=== PATIENT | female | born 1980 | race Caucasian/White ===

== ENCOUNTER 2019-12-28 19:27 | Emergency (ER) | payer SELFPAY ==
[~2019-12-28] VITALS: Ht 154.9 cm; Wt 68.0 kg
[~2019-12-28 19:27] MED LIST: NO MEDS
--- OUTSIDE RECORDS SUMMARY | 2019-12-28 19:30 | XMS REPORT | Summary of Care ---
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 Name Role Phone Pcp, Patient Does Not Have A PCP Reason for Referral * Radiology Services (STAT) Referred By Contact Referred To Contact Status Reason Specialty Diagnoses / Procedures Matteo Veronica MD [address] [address] New Request Diagnostic Diagnoses Radiology Epigastric pain P rocedures US GALL BLADDER * Radiology Services (STAT) Referred By Contact Referred To Contact Status Reason Specialty Diagnoses / Procedures Matteo Veronica MD [address] [address] New Request Diagnostic Diagnoses Radiology Epigastric pain P rocedures US GALL BLADDER Reason for Visit * Reason Comments Abdominal Pain * Auth/Cert Referred By Contact Referred To Contact Status Reason Specialty Diagnoses / Procedures [facility] Emergency Dept [address] [place] [id number] Emergency Medicine Encounter Details Care Team Description Date Type Department Matteo Veronica MD [address] [address] Epigastric pain (Primary Dx); Hepatomegaly; Steatosis of liver 07/02/2019 Emergency [facility]-Emergency Department [address] [place] [phone] Allergies Comments Active Allergy Reactions Severity Noted Date Atorvastatin Calcium Hives 08/16/2006 Sulfa (Sulfonamide Hives 08/16/2006 Antibiotics) documented as of this encounter (statuses as of 07/02/2019) Medications End Date Status Medication Sig Dispensed Refills Start Date Active ibuprofen 800 mg tablet Take 1 tablet 21 tablet 0 by mouth 8 every 8 (eight) hours as needed (PAIN). Active FLUoxetine (PROZAC) 40 mg Take 40 mg by 0 capsule mouth daily. Active HYDROmorphOne 4 mg tablet Take 1 tablet 30 tablet 0 by mouth 8 every 4 (four) hours as needed for Pain (scale 7-10). Active gabapentin 300 mg capsule Take 1 90 capsule 0 capsule by 8 mouth 3 (three) times daily. Active docusate 100 mg capsule Take 1 60 capsule 0 capsule by 8 mouth every 12 (twelve) hours. Active clindamycin 300 mg Take 1 28 capsule 0 capsule capsule by 8 mouth 4 (four) times daily. Active amitriptyline 10 mg Take 1 tablet 30 tablet 0 tablet by mouth at 8 bedtime. Active traMADOL 50 mg tablet Take 1 tablet 10 tablet 0 by mouth 8 every 6 (six) hours as needed for Pain (scale 4-6). Active ondansetron (ZOFRAN) 4 mg Take 1 tablet 12 tablet 0 tabletIndications: Right by mouth 9 upper quadrant abdominal every 8 pain (eight) hours as needed for Nausea and Vomiting (N/V). Active pantoprazole (PROTONIX) Take 1 tablet 28 tablet 0 40 mg EC by mouth 9 tabletIndications: Right daily. upper quadrant abdominal pain Active ibuprofen 800 mg Take 1 tablet 21 tablet 0 tabletIndications: Right by mouth 9 upper quadrant abdominal every 6 (six) pain hours as needed (PAIN). 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 documented as of this encounter Last Filed Vital Signs Reading Time Taken Comments Vital Sign 148/95 07/02/2019 11:01 PM CDT Blood Pressure 91 07/02/2019 11:01 PM CDT Pulse 36.7 C (98 F) 07/02/2019 7:58 PM CDT Temperature 20 07/02/2019 11:01 PM CDT Respiratory Rate 97% 07/02/2019 11:01 PM CDT Oxygen Saturation - - Inhaled Oxygen Concentration 79.4 kg (175 lb) 07/02/2019 7:58 PM CDT Weight 154.9 cm (5' 1") 07/02/2019 7:58 PM CDT Height 33.07 07/02/2019 7:58 PM CDT Body Mass Index documented in this encounter Discharge Instructions * Instructions* Matteo Veronica MD - 07/02/2019 DIAGNOSIS Diagnoses that have been ruled out: None Diagnoses that are still under consideration: None Final diagnoses: Epigastric pain Hepatomegaly Steatosis of liver NO LIFE-THREATENING FINDINGS ON TODAY'S EXAM. PROCEDURES IN THE ER TODAY: Orders Placed This Encounter Procedures US GALL BLADDER CBC WITH DIFF BASIC METABOLIC PANEL (NA, K, CL, CO2, GLUCOSE, BUN, CREATININE, CA) HEPATIC FUNCTION PANEL (59768) (ALB,T.PRO,BILI T,BU/BC,ALT,AST,ALK PHOS) LIPASE POCT TEST URINALYSIS CBC WITH DIFFERENTIAL MEDICATIONS ADMINISTERED IN THE ER TODAY: Orders Placed This Encounter Medications ketorolac (TORADOL) injection 30 mg famotidine (PEPCID (PF)) injection 20 mg YOUR PRESCRIPTIONS AND [id number] MEDICATION RECOMMENDATIONS: Continue medications SPECIAL CARE INSTRUCTIONS: Follow p with PCP Return to the ED if worsening of symptoms or any other problems. FOLLOW-UP RECOMMENDATIONS: RECOMMEND FOLLOW-UP WITH A PRIMARY CARE PROVIDER OR SPECIALIST IN 2-5 DAYS, [place] IF NO IMPROVEMENT IN SYMPTOMS. TO FOLLOW-UP WITHIN THE [facility], TRY THESE OPTIONS (CLINIC APPOIN TMENTS AVAILABLE ON QESZ-IL-GHAB BASIS): 1. SCHEDULE AN APPOINTMENT ONLINE AT WWW[facility] 2. OR CALL THE [facility] AT OR 3. OR CALL YOUR [facility] PHYSICIAN'S OFFICE DIRECTLY IF YOU ARE ALREADY AN ESTABLISH ED [facility] PATIENT. OR, YOU MAY FOLLOW-UP WITH A PROVIDER OF YOUR CHOICE, SUCH : 1. A PHYSICIAN OF YOUR CHOICE 2. [facility], . LOCATIONS IN [facility] 3. [facility], [address], [place]; [phone] RETURN TO ER FOR WORSENING OF SYMPTOMS. * Attachments The following attachments cannot be sent through Care Everywhere.* Abdominal Pain, Adult (Kiswahili) documented in this encounter Plan of Treatment Health Maintenance Due Date Last Done Comments DTaP,Tdap,and Td Vaccines 1998 (1 - Tdap) PAP SMEAR 03/14/2013 03/14/2010, 06/15/2008, 12/14/2007, Additional history exists MAMMOGRAM 2019 INFLUENZA VACCINE 07/10/2019 12/12/2017 (Retired version) PNEUMOCOCCAL 0-64 YEARS Completed 12/12/2017 COMBINED SERIES documented as of this encounter Implants Device Identifier Shelf Expiration Date Model / Serial / Lot Implanted Type Area Manufactur er 02/06/2026 [id number] / [id number] / [id number] Derick Wires Style 1, WIRE Left: Hand Tatyana [id number] Tatyana #[id number] - [id number] Implanted: Qty: 2 on 12/08/2017 by Peter Zafar MD at [facility] documented as of this encounter Procedures Comments Procedure Name Priority Date/Time Associated Diagnosis US GALL BLADDER STAT 07/02/2019 Epigastric pain 10:30 PM CDT POCT TEST DA 07/02/2019 Epigastric pain 9:01 PM CDT CBC WITH DIFFERENTIAL STAT 07/02/2019 Epigastric pain 8:56 PM CDT URINALYSIS STAT 07/02/2019 Epigastric pain 8:56 PM CDT CBC WITH DIFF STAT 07/02/2019 Epigastric pain 8:56 PM CDT BASIC METABOLIC PANEL STAT 07/02/2019 Epigastric pain (NA, K, CL, CO2, GLUCOSE, 8:56 PM CDT BUN, CREATININE, CA) HEPATIC FUNCTION PANEL STAT 07/02/2019 Epigastric pain (63404) (ALB,T.PRO,BILI 8:56 PM CDT T,BU/BC,ALT,AST,ALK PHOS) LIPASE STAT 07/02/2019 Epigastric pain 8:56 PM CDT CONSENT/REFUSAL FOR Routine 07/02/2019 DIAGNOSIS AND TREATMENT 7:54 PM CDT documented in this encounter Results * US GALL BLADDER (07/02/2019 10:30 PM CDT) Specimen Impressions Performed At Hepatomegaly and hepatic steatosis. PACS/VR/DOSE No cholelithiasis. I, Sue Sepulveda MD., have reviewed this study and agree with the above report. Narrative Performed At LIMITED ABDOMINAL ULTRASOUND PACS/VR/DOSE INDICATION:abdominal pain COMPARISON: Abdominal CT 12/15/2018 FINDINGS: The liver is normal in enlarged measuring 18.5 cm in length and demonstrates increased echogenicity. The main portal vein demonstrates hepatopetal flow. No ascites is seen. The gallbladder is normally distended without stones or pericholecystic fluid. Low-level echogenic material within the gallbladder lumen is likely artifact. Evaluation for sonographic Miller's sign is limited due to the patient receiving pain medication. The gallbladder wall measures 2 mm. The common bile duct is normal in caliber measuring 4 mm. The partially imaged right kidney appears unremarkable. The partially imaged pancreatic neck and body are normal in echogenicity. Procedure Note [facility], Radiant Results Inft User - 07/02/2019 10:47 PM CDT LIMITED ABDOMINAL ULTRASOUND INDICATION: abdominal pain COMPARISON: Abdominal CT 12/15/2018 FINDINGS: The liver is normal in enlarged measuring 18.5 cm in length and demonstrates increased echogenicity. The main portal vein demonstrates hepatopetal flow. No ascites is seen. The gallbladder is normally distended without stones or pericholecystic fluid. Low-level echogenic material within the gallbladder lumen is likely artifact. Evaluation for sonographic Miller's sign is limited due to the patient receiving pain medication. The gallbladder wall measures 2 mm. The common bile duct is normal in caliber measuring 4 mm. The partially imaged right kidney appears unremarkable. The partially imaged pancreatic neck and body are normal in echogenicity. IMPRESSION Hepatomegaly and hepatic steatosis. No cholelithiasis. I, Sue Sepulveda MD., have reviewed this study and agree with the above report. Performing Organization Address City/State/Zipcode Phone Number PACS/VR/DOSE * POCT TEST (07/02/2019 9:01 PM CDT) [facility] POCT PREG result On board negative controls acceptable with C Line POCT PREG LOT # [id number] POCT PREG TEST 07/09/2020 DATE Specimen Urine - URINE, CLEAN CATCH * CBC WITH DIFFERENTIAL (07/02/2019 8:56 PM CDT) [facility] WBC 7.78 4.30 - 11.10 [facility] 10*3/L [facility] RBC 4.75 3.93 - 5.25 10*6/L [facility] HGB 12.1 11.6 - 15.0 g/dL [facility] HCT 38.4 35.7 - 45.2 % [facility] MCV 80.8 80.6 - 95.5 fL [facility] MCH 25.5 (L) 25.9 - 32.8 pg [facility] MCHC 31.5 (L) 31.6 - 35.1 g/dL [facility] RDW-SD 43.3 39.0 - 49.9 fL [facility] RDW-CV 15.0 12.0 - 15.5 % [facility] PLT 380 (H) 166 - 358 10*3/L [facility] MPV 9.4 (L) 9.5 - 12.9 fL [facility] NRBC/100 WBC 0.0 0.0 - 10.0 /100 WBCs [facility] NRBC x10^3 <0.01 10*3/L [facility] GRAN MAT (NEUT) 42.1 % [facility] % [facility] IMM GRAN % 0.30 % [facility] LYMPH % 45.9 % [facility] MONO % 8.1 % [facility] EOS % 2.6 % [facility] BASO % 1.0 % [facility] GRAN MAT 3.28 1.88 - 7.09 10*3/uL [facility] x10^3(ANC) [facility] IMM GRAN x10^3 <0.03 0.00 - 0.06 10*3/uL [facility] LYMPH x10^3 3.57 (H) 1.32 - 3.29 10*3/uL [facility] MONO x10^3 0.63 0.33 - 0.92 10*3/uL [facility] EOS x10^3 0.20 0.03 - 0.39 10*3/uL [facility] BASO x10^3 0.08 (H) 0.01 - 0.07 10*3/uL [facility] Specimen Blood - ARM, LEFT Performing Organization Address City/State/Zipcode Phone Number [facility] CLIA: [id number], [address] [place] [address] [facility] * URINALYSIS (07/02/2019 8:56 PM CDT) APPEARANCE Hazy (A) Clear [facility] COLOR Yellow Yellow [facility] PH 5.0 4.8 - 8.0 [facility] SP GRAVITY 1.021 1.003 - 1.030 [facility] GLU U QUAL Normal Normal [facility] BLOOD Negative Negative [facility] KETONES Negative [facility] Negative Negative [facility] UROBILIN Normal Normal [facility] BILIRUBIN Negative Negative [facility] NITRITE Negative Negative [facility] LEUK ERNA Negative Negative [facility] RBC/HPF 4 (H) 0 - 3 HPF [facility] WBC/HPF 2 0 - 5 HPF [facility] BACTERIA Negative Negative [facility] MUCOUS Slight (A) Negative LPF [facility] SQ EPITH 7 (H) <=2 HPF [facility] CA OXALATE 2 (H) <=1 HPF [facility] Specimen Urine - URINE, CLEAN CATCH Performing Organization Address City/[facility]/Zipcode Phone Number [facility] CLIA: [id number], [address] [place] [address] [facility] * LIPASE (07/02/2019 8:56 PM CDT) LIPASE 272 (H) 0 - 220 U/L [facility] Specimen Blood - ARM, LEFT Performing Organization Address City/[facility]/Zipcode Phone Number [facility] CLIA: [id number], [address] [place] [id number] [facility] * HEPATIC FUNCTION PANEL (59172) (ALB,T.PRO,BILI T,BU/BC,ALT,AST,ALK PHOS) (07/02/2019 8:56 PM CDT) TOTAL BILI 0.5 0.1 - 1.1 mg/dL [facility] BILI UNCON 0.3 0.1 - 1.1 mg/dL [facility] BILI CONJ 0.0 0.0 - 0.3 mg/dL [facility] T PROTEIN 7.9 6.3 - 8.2 g/dL [facility] ALBUMIN 4.3 3.5 - 5.0 g/dL [facility] ALK PHOS 88 34 - 122 U/L [facility] ALT(SGPT) 236 (H) 9 - 51 U/L [facility] AST(SGOT) 328 (H) 13 - 40 U/L [facility] Specimen Blood - ARM, LEFT Performing Organization Address City/State/Zipcode Phone Number [facility] CLIA: [id number], [address] [place] [address] [facility] * BASIC METABOLIC PANEL (NA, K, CL, CO2, GLUCOSE, BUN, CREATININE, CA) (07/02/2019 8:56 PM CDT) NA 144 135 - 145 mmol/L [facility] K 4.3 3.5 - 5.0 mmol/L [facility] CL 100 98 - 108 mmol/L [facility] CO2 TOTAL 29 23 - 31 mmol/L [facility] AGAP 15 2 - 16 [facility] BUN 11 7 - 23 mg/dL [facility] GLUCOSE 100 70 - 110 mg/dL [facility] CREATININE 1.01 0.50 - 1.04 mg/dL [facility] CALCIUM 10.3 8.6 - 10.6 mg/dL [facility] eGFR 60.7 mL/min/1.73m2 [facility] Calculation [facility] ([facility]) eGFR 73.6 mL/min/1.73m2 [facility] Calculation [facility] [place]) Specimen Blood - ARM, LEFT Narrative Performed At Association of Glomerular Filtration Rate (GFR) and Staging of Kidney Disease* [facility] + + + + [facility] | GFR (mL/min/1.73 m2)| With Kidney Damage|Without Kidney Damage CAMPUS + + + + |>90|Stage one| Normal + + + + |60-89|Stage two| Decreased GFR + + + + |30-59|Stage three| Stage three + + + + |15-29|Stage four | Stage four + + + + |<15 (or dialysis)|Stage five | Stage five + + + + *Each stage assumes the associated GFR level has been in effect for at least three months.Stages 1 to 5, with or without kidney disease, indicate chronic kidney disease. Notes: Determination of stages one and two (with eGFR >59mL/min/1.73 m2) requires estimation of kidney damage for at least three months as defined by structural or functional abnormalities of the kidney, manifested by either: Pathological abnormalities or Markers of kidney damage (including abnormalities in the composition of the blood or urine or abnormalities in imaging tests). Performing Organization Address City/State/Zipcode Phone Number [facility] CLIA: [id number], [address] [place] [address] [facility] documented in this encounter Visit Diagnoses Diagnosis Epigastric pain - Primary Abdominal pain, epigastric Hepatomegaly Steatosis of liver Other chronic nonalcoholic liver disease documented in this encounter Administered Medications Action Date Dose Rate Site Medication Order MAR Action 07/02/2019 10:10 PM CDT 20 mg famotidine (PEPCID (PF)) injection 20 mg Given 20 mg, Slow IV Push, ONCE, 1 dose, 07/02/19 at 2300, DA 07/02/2019 10:10 PM CDT 30 mg ketorolac (TORADOL) injection 30 mg Given 30 mg, Slow IV Push, ONCE, 1 dose, 07/02/19 at 2300, 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
--- OUTSIDE RECORDS SUMMARY | 2019-12-28 19:30 | XMS REPORT ---
Author Author [facility] Address Unknown Phone Unavailable Care Team Providers Care Digital Marketing Manager Name Role Phone Unavailable Unavailable Problems This patient has no known problems. Allergies, Adverse Reactions, Alerts This patient has no known allergies or adverse reactions. Medications This patient has no known medications.
--- OUTSIDE RECORDS SUMMARY | 2019-12-28 19:30 | XMS REPORT | Summary of Care ---
Author Author [facility] Organization [facility] Address Unknown Phone Unavailable Care Team Providers Care Digital Campaign Manager Name Role Phone Pcp, Patient Does Not Have A PCP Reason for Visit * Reason Comments WITHDRAWAL * Auth/Cert Referred By Contact Referred To Contact Status Reason Specialty Diagnoses / Procedures [facility] Emergency Dept [address] [place] [phone] Emergency Medicine Encounter Details Care Team Description Date Type Department Matteo Veronica MD [address] [facility] [id number] [place], [place] [id number] Alcohol withdrawal syndrome without complication (Primary Dx); Alcohol abuse 06/14/2019 Emergency [facility]-Emergency Department [address] [place] [phone] Allergies Comments Active Allergy Reactions Severity Noted Date Atorvastatin Calcium Hives 08/16/2006 Sulfa (Sulfonamide Hives 08/16/2006 Antibiotics) documented as of this encounter (statuses as of 06/14/2019) Medications End Date Status Medication Sig Dispensed [...] 6 (six) pain hours as needed (PAIN). 06/19/2019 Active oxazepam 15 mg Take 1 10 capsule 0 capsuleIndications: capsule by 9 Alcohol withdrawal mouth 2 (two) syndrome without times daily complication for 5 days. 06/18/2019 Active ondansetron (ZOFRAN ODT) Take 1 tablet 12 tablet 0 4 mg disintegrating by mouth 9 tabletIndications: every 8 Alcohol withdrawal (eight) hours syndrome without as needed for complication N/V unresponsive to Promethazine for up to 4 days. documented as of this encounter (statuses as of 06/14/2019) Active Problems Problem Noted Date Abscess 12/01/2017 Cellulitis of finger of right hand 11/30/2017 Overview: Added automatically from request for surgery [id number] delivery delivered 08/07/2007 Overview: ICD10 Diagnosis Term [employer] Utility Nausea with vomiting 07/16/2007 documented as of this encounter (statuses as of 06/14/2019) Immunizations Name Administration Dates Next Due Influenza [...] Signs Reading Time Taken Comments Vital Sign 147/85 06/14/2019 10:30 PM CDT Blood Pressure 90 06/14/2019 10:30 PM CDT Pulse 36.9 C (98.4 F) 06/14/2019 7:56 PM CDT Temperature 20 06/14/2019 10:30 PM CDT Respiratory Rate 100% 06/14/2019 10:30 PM CDT Oxygen Saturation - - Inhaled Oxygen Concentration 83.9 kg (185 lb) 06/14/2019 7:56 PM CDT Weight 154.9 cm (5' 1") 06/14/2019 7:56 PM CDT Height 34.96 06/14/2019 7:56 PM CDT Body Mass Index documented in this encounter Discharge Instructions * Instructions* Matteo Veronica MD - 06/14/2019 DIAGNOSIS Diagnoses that have been ruled out: None Diagnoses that are still under consideration: None Final diagnoses: Alcohol withdrawal syndrome without complication Alcohol abuse NO LIFE-THREATENING FINDINGS ON TODAY'S EXAM. PROCEDURES IN THE ER TODAY: Orders Placed This Encounter Procedures Basic Metabolic Panel (NA, K, CL, CO2, GLUCOSE, BUN, CREATININE, CA) CBC with Differential Hepatic Function Panel (ALB, T.PRO, BILI T, BU/BC, ALT, AST, ALK PHOS) Lipase Serum Urinalysis POCT Test, Urine CBC WITH DIFFERENTIAL ETHANOL ADC / LCC - DRUG SCREEN TRIAGE MEDICATIONS ADMINISTERED IN THE ER TODAY: Orders Placed This Encounter Medications NaCl 0.9% (NS) bolus infusion 1,000 mL LORazepam (ATIVAN) injection 2 mg thiamine (VITAMIN B1) tablet 100 mg foLIC acid (FOLATE) tablet 1 mg ondansetron (ZOFRAN (PF)) injection 4 mg Ketorolac Tromethamine (TORADOL) injection 30 mg YOUR PRESCRIPTIONS AND [id number] MEDICATION RECOMMENDATIONS: Serax SPECIAL CARE INSTRUCTIONS: Follow up with PCP Return to the ED if worsening of symptoms FOLLOW-UP RECOMMENDATIONS: RECOMMEND FOLLOW-UP WITH A PRIMARY CARE PROVIDER OR SPECIALIST IN 2-5 DAYS, [place] IF NO IMPROVEMENT IN SYMPTOMS. TO FOLLOW-UP WITHIN THE [facility], TRY THESE OPTIONS (CLINIC APPOIN TMENTS AVAILABLE ON [id number] BASIS): 1. SCHEDULE AN APPOINTMENT ONLINE AT [email or web address] 2. OR CALL THE [facility] AT OR 3. OR CALL YOUR [facility] PHYSICIAN'S OFFICE DIRECTLY IF YOU ARE ALREADY AN ESTABLISH ED [facility] PATIENT. OR, YOU MAY FOLLOW-UP WITH A PROVIDER OF YOUR CHOICE, SUCH : 1. A PHYSICIAN OF YOUR CHOICE 2. [facility], . LOCATIONS IN [facility] 3. [facility], [address], [place]; RETURN TO ER FOR WORSENING OF SYMPTOMS. * Attachments The following attachments cannot be sent through Care Everywhere.* Alcoholism: Resources for Family and Friends ([place]) documented in this encounter Plan of Treatment Health Maintenance Due Date Last Done Comments DTaP,Tdap,and Td Vaccines 1998 (1 - Tdap) PAP SMEAR 03/14/2013 03/14/2010, 06/15/2008, 12/14/2007, Additional history exists MAMMOGRAM 2019 INFLUENZA VACCINE 07/10/2019 12/12/2017 PNEUMOCOCCAL 0-64 YEARS Completed 12/12/2017 COMBINED SERIES documented as of this encounter Implants Device Identifier Shelf Expiration Date Model / Serial / Lot Implanted Type Area Manufactur er 02/06/2026 [id number] / [id number] / [id number] Derick Wires Style 1, WIRE Left: Hand Tatyana [id number] Tatyana #[id number] - [id number] Implanted: Qty: 2 on 12/08/2017 by Peter Zafar MD at [facility] documented as of this encounter Procedures Comments Procedure Name Priority Date/Time Associated Diagnosis ADC / LCC - DRUG SCREEN STAT 06/14/2019 Alcohol withdrawal TRIAGE 10:51 PM CDT syndrome without complication CBC WITH DIFFERENTIAL STAT 06/14/2019 Alcohol withdrawal 8:21 PM CDT syndrome without complication POCT TEST DA 06/14/2019 Alcohol withdrawal 8:21 PM CDT syndrome without complication URINALYSIS STAT 06/14/2019 Alcohol withdrawal 8:21 PM CDT syndrome without complication CBC WITH DIFF Routine 06/14/2019 Alcohol withdrawal 8:21 PM CDT syndrome without complication ETHANOL STAT 06/14/2019 Alcohol withdrawal 8:21 PM CDT syndrome without complication BASIC METABOLIC PANEL STAT 06/14/2019 Alcohol withdrawal (NA, K, CL, CO2, GLUCOSE, 8:21 PM CDT syndrome without BUN, CREATININE, CA) complication HEPATIC FUNCTION PANEL STAT 06/14/2019 Alcohol withdrawal (16401) (ALB,T.PRO,BILI 8:21 PM CDT syndrome without T,BU/BC,ALT,AST,ALK PHOS) complication LIPASE STAT 06/14/2019 Alcohol withdrawal 8:21 PM CDT syndrome without complication CONSENT/REFUSAL FOR Routine 06/14/2019 DIAGNOSIS AND TREATMENT 7:48 PM CDT documented in this encounter Results * ADC / C - DRUG SCREEN TRIAGE (06/14/2019 10:51 PM CDT) BENZO U Negative Negative [facility] STACEY U Negative Negative [facility] AMPHET Negative Negative [facility] THC Negative [facility] METHADONE Negative Negative [facility] Meth U Negative Negative [facility] OPIATES Negative Negative [facility] Cocaine Negative Negative [facility] Metabolite [facility] PROPOXY Negative Negative [facility] Tric U Negative Negative [facility] PCP Negative Negative [facility] OXYCOD Negative Negative [facility] Specimen Urine - URINE, CLEAN CATCH Narrative Performed At Urine Drug Cutoff Ranges [facility] Benzodiazepines: 150 ng/mL [facility] Barbiturates: 200 ng/mL [place] Amphetamine: 500 ng/mL Cannabinoids: 50ng/mL Methadone: 200 ng/mL Methamphetamine: 500 ng/mL Opiates: 100 ng/mL or 2000 ng/mL Cocaine: 150 ng/mL Propoxyphene:300 ng/mL Tricyclics:300 ng/mL Oxycodone: 100 ng/mL PCP: 25ng/mL The results are to be used only for medical (i.e., treatment) purposes. Unconfirmed screening results must not be used for non-medical purposes (e.g., employment testing, legal testing). Performing Organization Address City/[facility] Phone Number [facility] CLIA: [id number], [address] [place] [address] [facility] * ETHANOL (06/14/2019 8:21 PM CDT) ALCOHOL <10 mg/dL [facility] Specimen Blood Narrative Performed At Toxic Greater than or equal to 80 mg/dL. [facility] NOTE: Whole blood values are approximately 10% to 15% lower than serum and [facility] plasma. CAMPUS Performing Organization Address City/[facility]code Phone Number [facility] CLIA: [id number], [address] [place] [address] [facility] * CBC WITH DIFFERENTIAL (06/14/2019 8:21 PM CDT) WBC 15.66 (H) 4.30 - 11.10 [facility] 10*3/L [facility] RBC 5.24 3.93 - 5.25 10*6/L [facility] HGB 13.4 11.6 - 15.0 g/dL [facility] HCT 42.7 35.7 - 45.2 % [facility] MCV 81.5 80.6 - 95.5 fL [facility] MCH 25.6 (L) 25.9 - 32.8 pg [facility] MCHC 31.4 (L) 31.6 - 35.1 g/dL [facility] RDW-SD 46.8 39.0 - 49.9 fL [facility] RDW-CV 15.9 (H) 12.0 - 15.5 % [facility] PLT 601 (H) 166 - 358 10*3/L [facility] MPV 8.9 (L) 9.5 - 12.9 fL [facility] NRBC/100 WBC 0.0 0.0 - 10.0 /100 WBCs [facility] NRBC x10^3 <0.01 10*3/L [facility] GRAN MAT (NEUT) 76.5 % [facility] % [facility] IMM GRAN % 0.50 % [facility] LYMPH % 16.0 % [facility] MONO % 5.8 % [facility] EOS % 0.4 % [facility] BASO % 0.8 % [facility] GRAN MAT 11.98 (H) 1.88 - 7.09 10*3/uL [facility] x10^3(ANC) [facility] IMM GRAN x10^3 0.08 (H) 0.00 - 0.06 10*3/uL [facility] LYMPH x10^3 2.50 1.32 - 3.29 10*3/uL [facility] MONO x10^3 0.91 0.33 - 0.92 10*3/uL [facility] EOS x10^3 0.07 0.03 - 0.39 10*3/uL [facility] BASO x10^3 0.12 (H) 0.01 - 0.07 10*3/uL [facility] Specimen Blood - ARM, LEFT Performing Organization Address City/State/Zipcode Phone Number [facility] CLIA: [id number], [address] [place] [address] [facility] * POCT Test, Urine (06/14/2019 8:21 PM CDT) POCT PREG NEGATIVE On board PRESENT controls acceptable with C Line POCT PREG LOT # [id number] POCT PREG TEST [phone] DATE Specimen Urine - URINE, CLEAN CATCH * Urinalysis (06/14/2019 8:21 PM CDT) Pathologist [facility] APPEARANCE Hazy (A) Clear [facility] COLOR Yellow Yellow [facility] PH 7.0 4.8 - 8.0 [facility] SP GRAVITY 1.019 1.003 - 1.030 [facility] GLU U QUAL Normal Normal [facility] BLOOD Negative Negative [facility] KETONES Negative Negative [facility] PROTEIN 100 mg/dL (A) Negative [facility] UROBILIN Normal Normal [facility] BILIRUBIN Negative Negative [facility] NITRITE Negative Negative [facility] LEUK ERNA Negative Negative [facility] RBC/HPF 3 0 - 3 HPF [facility] WBC/HPF 3 0 - 5 HPF [facility] BACTERIA Few (A) Negative [facility] AMORPHOUS 1+ HPF [facility] SQ EPITH 12 (H) <=2 HPF [facility] Specimen Urine - URINE, CLEAN CATCH Performing Organization Address City/[facility] Phone Number [facility] CLIA: [id number], [address] [place] [phone] [facility] * Lipase Serum (06/14/2019 8:21 PM CDT) Pathologist [facility] LIPASE 137 0 - 220 U/L [facility] Specimen Blood - ARM, LEFT Performing Organization Address [facility] Phone Number [facility] CLIA: [id number], [address] [place] [phone] [facility] * Hepatic Function Panel (ALB, T.PRO, BILI T, BU/BC, ALT, AST, ALK PHOS) (06/14/2019 8:21 PM CDT) TOTAL BILI 1.1 0.1 - 1.1 mg/dL [facility] BILI UNCON 0.8 0.1 - 1.1 mg/dL [facility] BILI CONJ 0.0 0.0 - 0.3 mg/dL [facility] T PROTEIN 9.0 (H) 6.3 - 8.2 g/dL [facility] ALBUMIN 4.9 3.5 - 5.0 g/dL [facility] ALK PHOS 85 34 - 122 U/L [facility] ALT(SGPT) 166 (H) 9 - 51 U/L [facility] AST(SGOT) 121 (H) 13 - 40 U/L [facility] Specimen Blood - ARM, LEFT Performing Organization Address City/State/Zipcode Phone Number [facility] CLIA: [id number], [address] [place] [address] [facility] * Basic Metabolic Panel (NA, K, CL, CO2, GLUCOSE, BUN, CREATININE, CA) (06/14/2019 8:21 PM CDT) NA 140 135 - 145 mmol/L [facility] K 5.2 (H) 3.5 - 5.0 mmol/L [facility] CL 100 98 - 108 mmol/L [facility] CO2 TOTAL 23 23 - 31 mmol/L [facility] AGAP 17 (H) 2 - 16 [facility] BUN 10 7 - 23 mg/dL [facility] GLUCOSE 117 (H) 70 - 110 mg/dL [facility] CREATININE 0.69 0.50 - 1.04 mg/dL [facility] CALCIUM 10.3 8.6 - 10.6 mg/dL [facility] eGFR 94.2 mL/min/1.73m2 [facility] Calculation [facility] (Non-[facility]) eGFR 114.2 mL/min/1.73m2 [facility] Calculation [facility] ([facility]) Specimen Blood - ARM, LEFT Narrative Performed At Association of Glomerular Filtration Rate (GFR) and Staging of Kidney Disease* [facility] + + + + [facility] | GFR (mL/min/1.73 m2)| With Kidney Damage|Without [...] tests). Performing Organization Address City/State/Zipcode Phone Number [facility] CLIA: [id number], [address] [place] [address] [facility] documented in this encounter Visit Diagnoses Diagnosis Alcohol withdrawal syndrome without complication - Primary Alcohol abuse Alcohol abuse, unspecified documented in this encounter Administered Medications Action Date Dose Rate Site Medication Order Jan06/14/2019 10:43 PM CDT 100 mg thiamine (VITAMIN B1) tablet 100 mg Given 100 mg, Oral, DAILY, First dose on Thu06/15/19 at 0900, Until Discontinued, Routine 100 mg Given 06/14/2019 8:31 PM CDT Action Date Dose Rate Site Medication Order Jan06/14/2019 8:31 PM CDT 1 mg foLIC acid (FOLATE) tablet 1 mg Given 1 mg, Oral, ONCE, 1 dose, 06/14/19 at 2130, DA 06/14/2019 10:50 PM CDT 30 mg Left Arm ketorolac (TORADOL) injection 30 mg Given 30 mg, Slow IV Push, ONCE, 1 dose, Thu06/14/19 at 2345, Routine, glass forming crew member approving Restricted medication: MATTEO VERONICA 06/14/2019 8:32 PM CDT 2 mg LORazepam (ATIVAN) injection 2 mg Given 2 mg, Slow IV Push, ONCE, 1 dose, Thu06/14/19 at 2130, STAT 06/14/2019 8:21 PM CDT 1,000 mL 999 mL/hr NaCl 0.9% (NS) bolus infusion 1,000 mL New Bag at 999 mL/hr, 1,000 mL, IV Infusion, ONCE, 1 dose, Thu06/14/19 at 2030, DA 06/14/2019 8:32 PM CDT 4 mg ondansetron (ZOFRAN (PF)) injection 4 mg Given 4 mg, Slow IV Push, ONCE, 1 dose, Thu06/14/19 at 2130, DA documented in this encounter
[2019-12-28] MEDS ORDERED: HYDROCODONE/APAP 7.5MG-325MG 1 EA TAB PO STA (20:20)
[2019-12-28] MEDS ORDERED: CLINDAMYCIN PHOS 600 MG/ 4 ML VIAL IM ONE (20:30)
[2019-12-28] MEDS ORDERED: LIDOCAINE HCL 1% 2 ML AMP INJ ONE (20:30)
[2019-12-28] MEDS ORDERED: LIDOCAINE HCL 1% LOCAL INJ 20 ML VIAL ONE (20:40)
[2019-12-28] MEDS ORDERED: CLONIDINE HCL 0.1 MG TAB ONE (20:41)
[2019-12-28] MEDS ORDERED: CLONIDINE HCL 0.1 MG TAB PO ONE (20:45)
--- NOTE | 2019-12-28 21:41 | Diagnostic Imaging Report ---
Hand Complete CPT code: 06545 Indication:Third digit injury Technique: Three views of the right hand obtained Comparison: None. Findings: Oblique and lateral images are suboptimally positioned. Distal radius and ulna appear intact. Carpal bones appear generally well aligned. The digits appear intact. There is diffuse soft tissue swelling of the second and third digits. No radiopaque foreign bodies in the soft tissues. IMPRESSION: No evidence for displaced fracture or current dislocation of the hand given the limitations of this exam. Signed by: Dr. Aime Paniagua MD on 12/28/2019 9:38 PM
[2019-12-28] MEDS ORDERED: CLINDAMYCIN HC300 MG PO (21:53)
[2019-12-28] MEDS ORDERED: ULTRAM50 MG PO (21:53)
== END 2019-12-28 22:30 | disposition home or self-care (01) ==
LOC: ER 19:27
DX: L03.011 Cellulitis of right finger (principal); I10 Essential (primary) hypertension; M06.9 Rheumatoid arthritis, unspecified; M79.7 Fibromyalgia; F31.9 Bipolar disorder, unspecified; F17.210 Nicotine dependence, cigarettes, uncomplicated; F15.90 Other stimulant use, unspecified, uncomplicated
CPT/HCPCS: 10060; 73130; 99283; J2001 ×2

== ENCOUNTER 2020-06-30 14:57 | Emergency (ER) | payer SELFPAY ==
[~2020-06-30] VITALS: Ht 154.9 cm; Wt 59.0 kg
[~2020-06-30 14:57] MED LIST changes: +CLINDAMYCIN HC300 MG PO; +ULTRAM50 MG PO
--- OUTSIDE RECORDS SUMMARY | 2020-06-30 15:12 | XMS REPORT | Continuity of Care Document ---
Author Author [facility] t Organization [facility] Address [address] [place] [address] Phone Unavailable Care Team Providers Care Health Practice Manager Name Role Phone NO, PCP PCP Unavailable Graham MD, Antione Hdz Attphys [phone] HIMA HINTON Attphys Unavailable Endy Veronica MD Attphys Payers Payer Name Policy Type Policy Number Effective Date Expiration Date S jorge [employer] [id number] [facility] Problems Condition Name Condition Details Condition Category Status Onset Date Resolution Date Last Treatment Date Treating Clinician Comments Source Hand trauma, left, initial encounter Hand trauma, left, init ial encounter Disease Active 2018-02-06 00:00:00 [facility] Headache(784.0) Headache(784.0) Disease Active 2014-09-01 00:00:00 [facility] Anxiety Anxiety Disease Active 2014-09-01 00:00:00 [facility] Active smoker Active smoker Disease Active 2014-09-01 00:00:00 [facility] Seizure disorder Seizure disorder Disease Active 2014-09-01 00:00:00 [facility] Rheumatoid arthritis(714.0) Rheumatoid arthritis(714.0) Disease Active 2014-09-01 00:00:00 [facility] Bipolar affective Bipolar affective Disease Active 2014-09-01 00:00:00 [facility] Depression Depression Disease Active 2014-09-01 00:00:00 [facility] Right sided abdominal pain Right sided abdominal pain Disease Active 2011-12-11 00:00:00 [facility] Allergies, Adverse Reactions, Alerts Allergy Name Allergy Type Status Severity Reaction(s) Onset Date Inacti ve Date Treating Clinician Comments Source Sulfa (Sulfonamide Antibiotics) Propensity to adverse reactions to drug Active Altered Mental Status 2020-05-22 00:00:00 Pe[facility] Cruz Sulfa (Sulfonamide Antibiotics) DA Active U 2019-10-31 00 :00:00 [facility] Sulfa (Sulfonamide Antibiotics) DA Active U 2019-10-02 00 :00:00 [facility] Sulfa (Sulfonamide Antibiotics) DA Active U 2017-08-27 00 :00:00 [facility] Sulfa (Sulfonamide Antibiotics) Allergy to Substance Active M oderate "SLOWLY KILLS ME" 2015-05-07 00:00:00 [facility] Sulfa (Sulfonamide Antibiotics) Propensity to adverse reactions to drug Active 2011-12-10 00:00:00 [facility] Family History Family Member Diagnosis Comments Start Date Stop Date Source Natural father Hypertension [facility] Natural mother Diabetes [facility] Natural mother Heart [facility] Natural mother Hypertension [facility] Social History Social Habit Start Date Stop Date Quantity Comments Source Sex Assigned At [facility] Alcohol intake 2017-08-16 00:00:00 2017-08-16 00:00:00 Current drinker of alcohol (finding) [facility] Alcohol Comment 2017-08-16 00:00:00 2017-08-16 00:00:00 Occasional [facility] Smoking Status Start Date Stop Date Source Current every day smoker 2017-08-16 00:00:00 [facility] Medications Ordered Medication Name Filled Medication Name Start Date Stop Da te Current Medication? Ordering Clinician Indication Dosage Frequency Signature (SIG) Comments Components Source Clindamycin Hcl 300 Mg Capsule Clindamycin Hcl 300 Mg Capsul e 2019-12-28 00:00:00 Yes Derik L Ivey Traffic Control Technician 300 Every 6 Hours [facility] Tramadol Hcl (Ultram) 50 Mg Tablet Tramadol Hcl (Ultram) 50 Mg Tablet 2019-12-28 00:00:00 Yes Derik L Ivey Traffic Control Technician 50 Every 6 Hours as needed for Mild Pain (1-3) Or Fever>100.[address] [facility] clonazePAM (KLONOPIN) 1 mg tablet 2014-12-13 00:00:00 Yes Bipolar 1 disorder 1mg Take 1 tablet by mouth 2 times daily as needed for Anxiety. [facility] FLUoxetine (PROZAC) 20 mg capsule 2014-12-13 00:00:00 Yes Bipolar 1 disorder 60mg QD Take 3 capsules by mouth daily. [facility] ARIPiprazole (ABILIFY) 5 mg tablet 2014-12-13 00:00:00 Yes Bipolar 1 disorder Take 1 tab po BID. [facility] traZODone (DESYREL) 100 mg tablet 2014-12-13 00:00:00 Yes Bipolar 1 disorder 100mg Take 1 tablet by mouth at bedtime nightly. [facility] benzonatate (TESSALON PERLES) 100 mg capsule 2014-11-07 00:0 0:00 Yes Acute bronchitis 100mg Take 1 capsule by mouth 3 times daily as needed for Cough. [facility] Lubiprostone (AMITIZA) 8 mcg capsule 2014-10-12 00:00:00 Yes Constipation 8ug Take 1 capsule by mouth 2 times daily (with meals). [facility] predniSONE (DELTASONE) 20 mg tablet 2014-10-12 00:00:00 Yes Rheumatoid arthritis(714.0) 20mg QD Take 1 tablet by mouth daily. [facility] FLUoxetine (PROZAC) 40 mg capsule 2014-09-01 00:00:00 Ye s Depression 40mg QD Take 1 capsule by mouth daily. [facility] butalbital-apap (PHRENILIN) 50-325 mg tablet 2014-09-01 00:0 0:00 Yes Headache(784.0) 1{tbl} Take 1 tablet by mark th every 4 hours as needed for Pain. [facility] Vital Signs Vital Name Observation Time Observation Value Comments Source Systolic blood pressure 2020-05-23 01:00:00 163 mm[Hg] Randall Arroyo Diastolic blood pressure 2020-05-23 01:00:00 97 mm[Hg] Randall Arroyo Heart rate 2020-05-23 01:00:00 63 /min Randall Arroyo Respiratory rate 2020-05-23 01:00:00 21 /min Wanda Arroyo Oxygen saturation in Arterial blood by Pulse oximetry 05-23 01:00:00 99 /min Randall Arroyo Body temperature 2020-05-22 16:38:29 36.5 Yarely Hous abhay Arroyo Procedures Procedure Date / Time Performed Performing Clinician Sour e CT ABDOMEN PELVIS W CONTRAST 2020-05-22 21:21:39 Devin Graham URINE DRUGS OF ABUSE SCREEN 2020-05-22 20:32:00 Gianluca Graham URINE CULTURE 2020-05-22 19:34:00 Anne Graham URINALYSIS SCREEN AND MICROSCOPY, WITH REFLEX TO CULTURE 202 19:34:00 Anne Graham HC COMPLETE BLD COUNT W/AUTO DIFF 2020-05-22 19:19:00 Anne Graham COMPREHENSIVE METABOLIC PANEL 2020-05-22 19:19:00 Chhaya Graham LIPASE LEVEL 2020-05-22 19:19:00 Anne Graham HCG QUALITATIVE, SERUM SCREEN 2020-05-22 19:19:00 Chhaya Graham ESTIMATED GFR 2020-05-22 19:19:00 Anne Graham Plan of Care Planned Activity Planned Date Details Comments Source Future Scheduled Test 2020-08-09 00:00:00 INFLUENZA VACCINE [code = INFLUENZA VACCINE] Randall Arroyo Future Scheduled Test 2020-08-09 00:00:00 IMM Influenza Seas onal Aug to January (>/= 19 yrs) [code = IMM Influenza Seasonal Aug to January (>/= 19 yrs)] [facility] Scheduled Test 2019 00:00:00 Breast Cancer Scrn (Yearly) [code = Breast Cancer Scrn (Yearly)] [facility] Scheduled Test 2000 00:00:00 Screening for [place] gnant neoplasm of cervix (procedure) [code = 818251213] Randall Estrada t Future Scheduled Test 2000 00:00:00 Screening for [place] gnant neoplasm of cervix (procedure) [code = 146354544] [facility] Encounters Start Date/Time End Date/Time Encounter Type Admission Type [facility] Care Department Encounter ID Source 2020-05-22 00:00:00 2020-05-23 00:00:00 Emergency ANNE GRAHAM [facility] [id number] Randall Arroyo 2019-12-28 19:27:00 2019-12-28 22:30:00 Departed Emergency Room 1 HIMA HINTON [facility] [id number] [facility] 2019-07-02 20:01:17 2019-07-02 23:34:00 Emergency Matteo Veronica [facility] ([facility]) [id number] 2019-06-14 19:58:52 2019-06-14 23:11:00 Emergency Matteo Veronica [facility] ([facility]) [id number] 2018-02-06 20:22:56 2018-02-06 20:22:56 Emergency [facility] [id number] [facility] 2018-02-06 18:43:59 2018-02-06 18:43:59 Emergency [facility] [id number] [facility] 2017-09-09 00:00:00 2017-09-09 00:00:00 Outpatient [facility] [id number] [facility] 2017-08-16 18:06:40 2017-08-16 18:06:40 Emergency [facility] [id number] [facility] Results Test Description Test Time Test Comments Results Result Comments Source Urine drugs of abuse screen 2020-05-22 21:36:47 Test Item Amphetamine screen, urine (test code = 3349-8) Positive A Barbiturate screen, urine (test code = 3377-9) Negative Benzodiazepine screen, urine (test code = 3390-2) Negative Cocaine screen, urine (test code = 3397-7) Negative Methadone metabolite (EDDP), urine (test code = 43793-0) Negative Opiates screen, urine (test code = 3879-4) Negative Oxycodone screen, urine (test code = 80591-5) Negative Phencyclidine screen, urine (test code = 3936-2) Negative Cannabinoid screen, urine (test code = 3427-2) Positive A Drug screen minimum concentration of detectabilityAmphetamines 1000 ng/mLBarbiturates 200 ng/mLBenzodiazepines 300 ng/mLCocaine 300 ng/mLMethadone 300 ng/mLOpiates 300 ng/mLOxycodone 300 ng/mLPhencyclidine 25 ng/mLCannabinoids 50 ng/mLTricyclics 1000 ng/mLResults are from screening tests and should only be used for medical evaluation. Drug testing for legal purposes requires definitive (or confirmatory) testing methods, which are available upon request. Contact the laboratory if definitive testing is required. Lab Interpretation (test code = 83970-7) Abnormal [facility] Pelvis W [id number] 21:30:34Hm Interface, Radiology Results 05/22/2020 9:33 PM CDTCT ABDOMEN PELVIS W CONTRASTCLINICAL INDICATION: R sided abd painTECHNIQUE: Multidetector CT imaging of the abdomen and pelvis was performed following the intravenous admini stration of iodinated contrast with multiplanar reconstructions. CT imaging was performed with iterative reconstruction technique and/or automated exposure con trol to reduce radiation dose.COMPARISON: 04/08/2008IMPRESSION:LOWER THORAX: Mi ld bibasilar atelectasis.Mild wall thickening of the distal esophagus is seen, c oncerning for esophagitis.LIVER: Diffuse fatty infiltration of the liver.BILI DEVI: Normal. SPLEEN: Normal.PANCREAS: Normal.ADRENALS: Normal. KIDNEYS: Kid neys, ureters, and bladder are normal.PERITONEUM: Bilateral Essure devices are i n satisfactory location. Trace fluid is seen in the pelvis. No free intraperiton eal air. VASCULAR: UnremarkableLYMPH NODES: No enlarged lymph nodes in the abd omen or pelvis.GI: Mild colonic diverticulosis is seen without diverticulitis. The appendix is normal. No gastrointestinal tract obstruction.BONES: There are no acute osseous abnormalities.SOFT TISSUES: Unremarkable.Summary:Mild wall thi ckening of the distal esophagus is seen, concerning for esophagitis.Diffuse fatt y infiltration of the liver.[facility]-HF22DLZHYgdzljgRandall ArroyoUrine [id number] 20:46:59* Test Item Value Reference Range Interpretation Comments Urine culture (test code = 7291217) SEE COMMENT Bacteriuria screen negative. [facility] screen and microscopy, with reflex to culture 2020-05-22 20:46:59* Test Item Value Reference Range Interpretation Comments Specimen site (test code = 1270361) Clean catch Color, UA (test code = 5778-6) Straw Appearance, UA (test code = 5767-9) Clear Specific gravity, UA (test code = 5811-5) 1.003 1.001-1.035 pH, UA (test code = 5803-2) 6.0 5.0-8.5 Protein, UA (test code = 35813-8) Negative Negative Glucose, UA (test code = 37986-4) Negative Negative Ketones, UA (test code = 2514-8) Negative Negative Bilirubin, UA (test code = 5770-3) Negative Negative Blood, UA (test code = 5794-3) Negative Negative Nitrite, UA (test code = 5802-4) Negative Negative Urobilinogen, UA (test code = 74525-4) Negative <2.0 Leukocyte esterase, UA (test code = 5799-2) Negative Negative WBC, UA (test code = 5821-4) <1 0- 5 /HPF RBC, UA (test code = 99491-1) <1 0- 5 /HPF Bacteria, UA (test code = 39528-5) None seen None seen Yeast, UA (test code = 26527-8) None seen Yeast with pseudohyphae, UA (test code = 00207-7) None seen [facility] qualitative, serum [id number] 20:29:27* Test Item Value Reference Range Interpretation Comments hCG qualitative, serum (test code = 2118-8) Negative The manufacturers stated sensitivity of HcG test for serum is >/= 10 mIU/ml and urine is >/= 20mIU/ml. [facility] [id number] 19:56:49* Test Item Value Reference Range Interpretation Comments Sodium (test code = 2951-2) 136 135- 150 mEq/L Potassium (test code = 2823-3) 3.6 3.5- 5.0 mEq/L Chloride (test code = 2075-0) 101 98- 112 mEq/L CO2 (test code = 2027-9) 24 mmol/L 24-31 Anion gap (test code = 23848-4) 11@ANIO 7- 15 mEq/L BUN (test code = 3094-0) 8 mg/dL 7-18 Creatinine (test code = 2160-0) 0.70 mg/dL 0.5-0.9 Glucose (test code = 2345-7) 94 mg/dL 65-100 Calcium (test code = 53419-0) 8.8 mg/dL 8.3-10.2 Protein (test code = 2885-2) 7.1 g/dL 6.3-8.3 Albumin (test code = 1751-7) 3.5 g/dL 3.5-5 A/G ratio (test code = 1759-0) 1.0 0.7-3.8 Alkaline phosphatase (test code = 6768-6) 87 U/L 0-104 AST (test code = 1920-8) 83 U/L 10-35 H ALT (test code = 1742-6) 85 U/L 5-50 H Total bilirubin (test code = 1974-2) 0.6 mg/dL 0.2-1.2 Lab Interpretation (test code = 09408-6) Abnormal [facility] MethodistLipase [id number] 19:56:48* Test Item Value Reference Range Interpretation Comments Lipase (test code = 3040-3) 33 U/L 13-60 [facility] MethodistEstimated [id number] 19:56:47* Test Item Value Reference Range Interpretation Comments Estimated GFR (test code = 5488) >=90 mL/min/1.73 m2 Catergory Units InterpretationG1 >=90 Normal or highG2 60-89 Mildly olvzjlgsyD2h 45-59 Mildly to moderately geghnpkvqD9u 30-44 Moderately to severely decreasedG4 15-29 Severely decreasedG5 <15 Kidney failureThe eGFR was calculated using the Chronic Kidney Disease Epidemiology Collaboration (CKD-EPI) equation. Interpretation is based on recommendations of the National Kidney Foundation-Kidney Disease Outcomes Quality Initiative (NKF-KDOQI) published in 2014. [facility] with platelet and [id number] 19:30:59* Test Item Value Reference Range Interpretation Comments WBC (test code = 68347-0) 8.2 4.2- 11.0 k/uL RBC (test code = 14370-9) 4.99 m/uL 4.04-5.86 HGB (test code = 718-7) 13.0 g/dL 11.5-15.3 HCT (test code = 4544-3) 41.2 % 34-45 MCV (test code = 787-2) 82.6 fL 80-98 MCH (test code = 785-6) 26.1 pg 27-34 L MCHC (test code = 786-4) 31.6 g/dL 31.5-36.5 RDW - SD (test code = 49095-2) 46.5 fL 37-51 MPV (test code = 36499-2) 10.0 fL 7.4-10.4 Platelet count (test code = 59163-9) 392 150- 400 k/uL Nucleated RBC (test code = 23037-6) 0.00 /100 WBC Neutrophils (test code = 64675-4) 47.9 % 36-66 Lymphocytes (test code = 98180-0) 39.6 % 24-44 Monocytes (test code = 86589-2) 7.3 % 0-6 H Eosinophils (test code = 62685-1) 4.5 % 0-6 Basophils (test code = 12767-3) 0.6 % 0-1.2 Immature granulocytes (test code = 27030-3) 0.1 % 0-1 Lab Interpretation (test code = 43870-7) Abnormal [facility]IE[facility] [id number] 21:36:00 [facility] [address] [place] [address] Patient Name: MOIRA LAZO MR #: [id number] : 1980 Age/Sex: 39/F Req #: [id number] Adm Physician: Ordered by: DERIK IVEY S IRON WORKER Report #: [id number] Location: ER Room/Bed: Procedure: [id number] DX/HAND 3+ VIEWS RIGHT Exam Date: 12/28/19 Exam Time: 2044 REPORT STATUS: Signed Hand Complete CPT code: 91592 Indication:Third digit injury Techniq ue: Three views of the right hand obtained Comparison: None. Findings: Oblique and lateral images are suboptimally positioned. Distal radius and ulna appear intact. Carpal bones appear generally well aligned. The digits ap pear intact. There is diffuse soft tissue swelling of the second and third dig its. No radiopaque foreign bodies in the soft tissues. IMPRESSION: No evidence for displaced fracture or current dislocation of the hand given the l imitations of this exam. Signed by: Dr. Nakul Villarreal MD on 12/28/2019 9:38 PM Dictated By: NAKUL VILLARREAL MD 37 Transcribed By: SIMON on 12/28/192137 COPY TO: DERIK IVEY S IRON WORKER BASIC METABOLIC [id number] 21:42:00 * Test Item Value Reference Range Interpretation Comments SODIUM (test code = NA) 141 mmol/L 136-145 N POTASSIUM (test code = K) 3.2 mmol/L 3.5-5.1 L CHLORIDE (test code = CL) 103.0 mmol/L 98-107 N CARBON DIOXIDE (test code = CO2) 28.0 mmol/L 21-32 N ANION GAP (test code = GAP) 13.2 10-20 N GLUCOSE (test code = GLU) 82 mg/dL 74-106 N BLOOD UREA NITROGEN (test code = BUN) 5 mg/dL 7-18 L GLOMERULAR FILTRATION RATE (test code = GFR) > 60 mL/min >=60 Estimated GFR by using Modified MDRD formula.Chronic kidney disease is defined as either kidney damageor GFR <60 mL/min/1.73 m2 for >3 months. CREATININE (test code = CREAT) 0.60 mg/dL 0.55-1.02 N Note change in reference range due to change in reagent. BUN/CREATININE RATIO (test code = BUN/CREA) 8.3 10-20 L CALCIUM (test code = CA) 8.6 mg/dL 8.5-10.1 N HEPATIC FUNCTION [id number] 21:42:00* Test Item Value Reference Range Interpretation Comments TOTAL PROTEIN (test code = PROT) 7.1 gram/dL 6.4-8.2 N ALBUMIN (test code = ALB) 2.9 g/dL 3.4-5.0 L GLOBULIN (test code = GLOB) 4.2 gram/dL 2.7-4.2 N ALBUMIN/GLOBULIN RATIO (test code = A/G) 0.7 0.75-1.50 L BILIRUBIN TOTAL (test code = BILT) 0.30 mg/dL 0.0-1.0 N BILIRUBIN DIRECT (test code = BILD) 0.13 mg/dL 0.0-0.20 N SGOT/AST (test code = AST) 105 IUnit/L 15-37 H SGPT/ALT (test code = ALT) 78 IUnit/L 12-78 N ALKALINE PHOSPHATASE TOTAL (test code = ALKP) 81 IUnit/L 45-117 N Note change in reference range due to change in reagent. HCG SERUM [id number] 21:42:00* Test Item Value Reference Range Interpretation Comments HCG SERUM QUAL (test code = HCGQL) NEGATIVE NEGATIVE This HCGQL test is NOT applicable for MALE patients.Check with nurse about probable order error.If Tumor Marker Test needed, nurse should order test "HCGTU"(Test #550.06081) [id number] 21:42:00* Test Item Value Reference Range Interpretation Comments ACETAMINOPHEN (test code = ACET) < 10 mcg/mL 10-30 L A RANGE OF 10-30 mcg/mL IS A THERAPEUTIC RANGE. TOXIC CONCENTRATIONS: >150 mcg/mL AT 4 HOURS AFTER INGESTION >= 50 mcg/mL AT 12 HOURS AFTER INGESTION [id number] 21:42:00* Test Item Value Reference Range Interpretation Comments SALICYLATE (test code = SHASHI) < 1.7 mg/dL 2.8-20.0 L [id number] 21:42:00* Test Item Value Reference Range Interpretation Comments ALCOHOL (test code = ALC) 84 mg/dL 0.0-3.0 H -- INTERPRETIVE DATA NOTE: POSITIVE SCREENING RESULTS SHOULD BE CONSIDERED PRESUMPTIVE.WHEN COLLECTED FOR MEDICAL PURPOSES ONLY. SPECIMEN WILL NOTBE COLLECTED BY CHAIN OF CUSTODY.IF A CONFIRMATION OF POSITIVE RESULTS IS DESIRED, ACONFIRMATION TEST MUST BE REQUESTED BY THE PHYSICIAN AT ANADDITIONAL CHARGE TO THE PATIENT. BASIC METABOLIC [id number] 21:34:00* Test Item Value Reference Range Interpretation Comments SODIUM (test code = NA) 141 mmol/L 136-145 N POTASSIUM (test code = K) 3.2 mmol/L 3.5-5.1 L CHLORIDE (test code = CL) 103.0 mmol/L 98-107 N CARBON DIOXIDE (test code = CO2) mmol/L 21-32 ANION GAP (test code = GAP) 10-20 GLUCOSE (test code = GLU) mg/dL 74-106 BLOOD UREA NITROGEN (test code = BUN) mg/dL 7-18 GLOMERULAR FILTRATION RATE (test code = GFR) mL/min >=60 CREATININE (test code = CREAT) mg/dL 0.55-1.02 BUN/CREATININE RATIO (test code = BUN/CREA) 10-20 CALCIUM (test code = CA) mg/dL 8.5-10.1 HEPATIC FUNCTION [id number] 21:34:00* Test Item Value Reference Range Interpretation Comments TOTAL PROTEIN (test code = PROT) gram/dL 6.4-8.2 ALBUMIN (test code = ALB) g/dL 3.4-5.0 GLOBULIN (test code = GLOB) gram/dL 2.7-4.2 ALBUMIN/GLOBULIN RATIO (test code = A/G) 0.75-1.50 BILIRUBIN TOTAL (test code = BILT) mg/dL 0.0-1.0 BILIRUBIN DIRECT (test code = BILD) mg/dL 0.0-0.20 SGOT/AST (test code = AST) IUnit/L 15-37 SGPT/ALT (test code = ALT) IUnit/L 12-78 ALKALINE PHOSPHATASE TOTAL (test code = ALKP) IUnit/L 45-117 HCG SERUM [id number] 21:34:00* Test Item Value Reference Range Interpretation Comments HCG SERUM QUAL (test code = HCGQL) NEGATIVE NEGATIVE This HCGQL test is NOT applicable for MALE patients.Check with nurse about probable order error.If Tumor Marker Test needed, nurse should order test "HCGTU"(Test #550.89313) [id number] 21:34:00* Test Item Value Reference Range Interpretation Comments ACETAMINOPHEN (test code = ACET) mcg/mL 10-30 [id number] 21:34:00* Test Item Value Reference Range Interpretation Comments SALICYLATE (test code = SHASHI) mg/dL 2.8-20.0 [id number] 21:34:00* Test Item Value Reference Range Interpretation Comments ALCOHOL (test code = ALC) mg/dL 0-3 BASIC METABOLIC [id number] 21:30:00* Test Item Value Reference Range Interpretation Comments SODIUM (test code = NA) mmol/L 136-145 POTASSIUM (test code = K) mmol/L 3.5-5.1 CHLORIDE (test code = CL) mmol/L 98-107 CARBON DIOXIDE (test code = CO2) mmol/L 21-32 ANION GAP (test code = GAP) 10-20 GLUCOSE (test code = GLU) mg/dL 74-106 BLOOD UREA NITROGEN (test code = BUN) mg/dL 7-18 GLOMERULAR FILTRATION RATE (test code = GFR) mL/min >=60 CREATININE (test code = CREAT) mg/dL 0.55-1.02 BUN/CREATININE RATIO (test code = BUN/CREA) 10-20 CALCIUM (test code = CA) mg/dL 8.5-10.1 HEPATIC FUNCTION [id number] 21:30:00* Test Item Value Reference Range Interpretation Comments TOTAL PROTEIN (test code = PROT) gram/dL 6.4-8.2 ALBUMIN (test code = ALB) g/dL 3.4-5.0 GLOBULIN (test code = GLOB) gram/dL 2.7-4.2 ALBUMIN/GLOBULIN RATIO (test code = A/G) 0.75-1.50 BILIRUBIN TOTAL (test code = BILT) mg/dL 0.0-1.0 BILIRUBIN DIRECT (test code = BILD) mg/dL 0.0-0.20 SGOT/AST (test code = AST) IUnit/L 15-37 SGPT/ALT (test code = ALT) IUnit/L 12-78 ALKALINE PHOSPHATASE TOTAL (test code = ALKP) IUnit/L 45-117 HCG SERUM [id number] 21:30:00* Test Item Value Reference Range Interpretation Comments HCG SERUM QUAL (test code = HCGQL) NEGATIVE NEGATIVE This HCGQL test is NOT applicable for MALE patients.Check with nurse about probable order error.If Tumor Marker Test needed, nurse should order test "HCGTU"(Test #550.44860) [id number] 21:30:00* Test Item Value Reference Range Interpretation Comments ACETAMINOPHEN (test code = ACET) mcg/mL 10-30 [id number] 21:30:00* Test Item Value Reference Range Interpretation Comments SALICYLATE (test code = SHASHI) mg/dL 2.8-20.0 [id number] 21:30:00* Test Item Value Reference Range Interpretation Comments ALCOHOL (test code = ALC) mg/dL 0-3 CBC W/O [id number] 21:06:00* Test Item Value Reference Range Interpretation Comments WHITE BLOOD CELL (test code = WBC) 5.5 K/mm3 4.5-12.5 N RED BLOOD CELL (test code = RBC) 4.83 mill/mm3 3.7-5.2 N HEMOGLOBIN (test code = HGB) 12.0 gram/dL 11.5-15.5 N HEMATOCRIT (test code = HCT) 39.4 % 36.0-46.0 N MEAN CELL VOLUME (test code = MCV) 81.6 fL 80-98 N MEAN CELL HGB (test code = MCH) 24.8 picogram 27.0-33.0 L MEAN CELL HGB CONCETRATION (test code = MCHC) 30.5 gram/dL 33.0-36. 0 L RED CELL DISTRIBUTION WIDTH (test code = RDW) 17.5 % 11.6-16. 2 H PLATELET COUNT (test code = PLT) 402 K/mm3 150-450 N MEAN PLATELET VOLUME (test code = MPV) 9.8 fL 6.7-11.0 N CBC W/O [id number] 21:05:00* Test Item Value Reference Range Interpretation Comments WHITE BLOOD CELL (test code = WBC) K/mm3 4.5-12.5 RED BLOOD CELL (test code = RBC) mill/mm3 3.7-5.2 HEMOGLOBIN (test code = HGB) 12.0 gram/dL 11.5-15.5 N HEMATOCRIT (test code = HCT) 39.4 % 36.0-46.0 N MEAN CELL VOLUME (test code = MCV) fL 80-98 MEAN CELL HGB (test code = MCH) picogram 27.0-33.0 MEAN CELL HGB CONCETRATION (test code = MCHC) gram/dL 33.0-36. 0 RED CELL DISTRIBUTION WIDTH (test code = RDW) % 11.6-16. 2 PLATELET COUNT (test code = PLT) K/mm3 150-450 MEAN PLATELET VOLUME (test code = MPV) fL 6.7-11.0 URINALYSIS [id number] 19:32:00* Test Item Value Reference Range Interpretation Comments UA COLOR (test code = COLU) Light-Yellow YELLOW UA APPEARANCE (test code = APPU) CLEAR CLEAR UA GLUCOSE DIPSTICK (test code = DGLUU) NEGATIVE mg/dL NEGATIVE UA BILIRUBIN DIPSTICK (test code = BILU) NEGATIVE mg/dL NEGATIVE UA KETONE DIPSTICK (test code = KETU) NEGATIVE mg/dL NEGATIVE UA SPECIFIC GRAVITY (test code = SGU) 1.006 1.001-1.035 UA BLOOD DIPSTICK (test code = JOSEFA) Negative mg/dL NEGATIVE UA PH DIPSTICK (test code = JAZMYN) 5.5 5.0-8.0 UA PROTEIN DIPSTICK (test code = PROU) NEGATIVE mg/dL NEGATIVE UA UROBILINIOGEN DIPSTICK (test code = URO) Normal mg/dL NEGATIVE UA NITRITE DIPSTICK (test code = TANIYA) NEGATIVE NEGATIVE UA LEUKOCYTE ESTERASE W REFLEX (test code = LEUUR) NEGATIVE Nazia/uL NEGATIVE UA WBC (test code = WBCU) 0-5 per HPF 0-5 UA RBC (test code = RBCU) 0-3 #/HPF 0-5 UA EPITHELIAL CELLS (test code = EPIU) FEW per HPF FEW UA BACTERIA (test code = BACU) FEW #/HPF NONE Urine Source? Clean CatchDRUGS OF ABUSE SCREEN [id number] 19:32:00* Test Item Value Reference Range Interpretation Comments URN COCAINE (test code = COCAURN) NEGATIVE <300 ng/mL URN CANNABINOIDS (test code = CANNABURN) POSITIVE <50 ng/mL A This test provides only a preliminary test result. A morespecific alternate chemical method must be used in order toobtain a confirmed analytical result. Gas chromatography/mass spectrometry (GC/MS) is thepreferred confirmatory method. Other chemical confirmationmethods are available. Clinical consideration and professional judgment should be applied to any drug of abusetest result, particularly when preliminary positive resultsare used.Unconfirmed screening results must not be used fornon-medical purposes (e.g., employment testing, legaltesting). URN AMPHETAMINE (test code = AMPHETURN) POSITIVE <1000 ng/mL A This test provides only a preliminary test result. A morespecific alternate chemical method must be used in order toobtain a confirmed analytical result. Gas chromatography/mass spectrometry (GC/MS) is thepreferred confirmatory method. Other chemical confirmationmethods are available. Clinical consideration and professional judgment should be applied to any drug of abusetest result, particularly when preliminary positive resultsare used.Unconfirmed screening results must not be used fornon-medical purposes (e.g., employment testing, legaltesting). URN BARBITURATE (test code = BARBITURN) NEGATIVE <200 ng/mL URN BENZODIAZEPINE (test code = BENZOURN) NEGATIVE <200 ng/mL URN OPIATES (test code = OPIATURN) NEGATIVE <300 ng/mL URN PHENCYCLIDINE (PCP) (test code = PHENCURN) NEGATIVE <25 ng/ mL URN METHADONE (test code = METHAURN) NEGATIVE <300 ng/mL Urine Source? Clean CatchURINALYSIS [id number] 19:10:00* Test Item Value Reference Range Interpretation Comments UA COLOR (test code = COLU) Light-Yellow YELLOW UA APPEARANCE (test code = APPU) CLEAR CLEAR UA GLUCOSE DIPSTICK (test code = DGLUU) NEGATIVE mg/dL NEGATIVE UA BILIRUBIN DIPSTICK (test code = BILU) NEGATIVE mg/dL NEGATIVE UA KETONE DIPSTICK (test code = KETU) NEGATIVE mg/dL NEGATIVE UA SPECIFIC GRAVITY (test code = SGU) 1.006 1.001-1.035 UA BLOOD DIPSTICK (test code = JOSEFA) Negative mg/dL NEGATIVE UA PH DIPSTICK (test code = JAZMYN) 5.5 5.0-8.0 UA PROTEIN DIPSTICK (test code = PROU) NEGATIVE mg/dL NEGATIVE UA UROBILINIOGEN DIPSTICK (test code = URO) Normal mg/dL NEGATIVE UA NITRITE DIPSTICK (test code = TANIYA) NEGATIVE NEGATIVE UA LEUKOCYTE ESTERASE W REFLEX (test code = LEUUR) NEGATIVE Nazia/uL NEGATIVE UA WBC (test code = WBCU) 0-5 per HPF 0-5 UA RBC (test code = RBCU) 0-3 #/HPF 0-5 UA EPITHELIAL CELLS (test code = EPIU) FEW per HPF FEW UA BACTERIA (test code = BACU) FEW #/HPF NONE Urine Source? Clean CatchDRUGS OF ABUSE SCREEN [id number] 19:10:00* Test Item Value Reference Range Interpretation Comments URN COCAINE (test code = COCAURN) <300 ng/mL URN CANNABINOIDS (test code = CANNABURN) <50 ng/mL URN AMPHETAMINE (test code = AMPHETURN) <1000 ng/mL URN BARBITURATE (test code = BARBITURN) <200 ng/mL URN BENZODIAZEPINE (test code = BENZOURN) <200 ng/mL URN OPIATES (test code = OPIATURN) <300 ng/mL URN PHENCYCLIDINE (PCP) (test code = PHENCURN) <25 ng/ mL URN METHADONE (test code = METHAURN) <300 ng/mL Urine Source? Clean Catch- XR FOOT 3 + V [id number] 12:19:00 FAX: Alexandra Juárez DO [place]: B St: REG FAX: Leslye Kumar Name: MOIRA LAZO [facility] : 1980 Age/S: 39/F [address] Unit #: [id number] Loc: [place] [address] Phys: Leslye Kumar NP Acct: [id number] Dis Date: Status: REG ER PHONE #: [phone] Exam Date: 10/02/2019 1207 FAX #: [phone] Reason: lac, glass EXAMS: CPT CODE: [id number] XR FOOT 3 + V RT [id number] CLINICAL HISTORY: Laceration to right foot, glass TECHNIQUE: AP, oblique, and lateral views of the right foot COMPAR [place]: None FINDINGS: No acute fracture or dislocatio n. Bony trabecular pattern is unremarkable. No cortical destruction or per iosteal reaction. Joint spaces are preserved. Foot soft tissue swelling. IMPRESSION: No acute osseous abnormalit y. No radiopaque foreign body. LOCATION: L P Electronically Signed by Kellee Mishra D.O. on at 1219 Reported and signed by: Kellee Mishra D.O. CC: Aleaxndra Juárez DO; Leslye Kumar NP Tech nologist: Porsha Parry RT(R) Trnscrd Date/Ti me/By: 10/02/2019 (6659) : By: [email or web address] Orig Print D/T: S: 10/02/2019 (5942) PAGE 1 Signed Report
--- OUTSIDE RECORDS SUMMARY | 2020-06-30 15:12 | XMS REPORT | Clinical Summary ---
Author Author [facility] Organization [facility] Address Unknown Phone Unavailable Care Team Providers Care Tool Setter Apprentice Name Role Phone Asked, No Pcp PCP Unavailable Allergies Comments Active Allergy Reactions Severity Noted Date Sulfa (Sulfonamide Altered 05/22/2020 Antibiotics) Mental Status Medications No known medications Active Problems Not on file Encounters Care Team Description Date Type Specialty Wilder Canales MD Abdominal pain, unspecified abdominal lo cation (Primary Dx) 05/22/2020 Emergency Emergency Medicine - 05/23/2020 after 06/30/2019 Social History Date Tobacco Use Types Packs/Day Years Used Current Every Day Smoker Smokeless Tobacco: Never Used Drinks/Week oz/Week Comments Alcohol Use Yes Sex Assigned at Date Recorded Not on file Industry Job Start Date Occupation Not on file Not on file Not on file Travel End Travel History Travel Start No recent travel history available. Last Filed Vital Signs Reading Time Taken Comments Vital Sign 163/97 05/23/2020 1:00 AM CDT Blood Pressure 63 05/23/2020 1:00 AM CDT Pulse 36.5 C (97.7 F) 05/22/2020 4:38 PM CDT Temperature 21 05/23/2020 1:00 AM CDT Respiratory Rate 99% 05/23/2020 1:00 AM CDT Oxygen Saturation - - Inhaled Oxygen Concentration - - Weight - - Height - - Body Mass Index Plan of Treatment Health Maintenance Due Date Last Done Comments CERVICAL CANCER SCREENING 2000 INFLUENZA VACCINE 08/09/2020 Procedures Comments Procedure Name Priority Date/Time Associated Diag nosis CT ABDOMEN PELVIS W STAT 05/22/2020 CONTRAST 9:21 PM CDT URINE DRUGS OF ABUSE STAT 05/22/2020 SCREEN 8:32 PM CDT URINALYSIS SCREEN AND STAT 05/22/2020 MICROSCOPY, WITH REFLEX 7:34 PM CDT TO CULTURE URINE CULTURE STAT 05/22/2020 7:34 PM CDT ESTIMATED GFR STAT 05/22/2020 7:19 PM CDT HCG QUALITATIVE, SERUM STAT 05/22/2020 SCREEN 7:19 PM CDT LIPASE LEVEL STAT 05/22/2020 7:19 PM CDT COMPREHENSIVE METABOLIC STAT 05/22/2020 PANEL 7:19 PM CDT HC COMPLETE BLD COUNT STAT 05/22/2020 W/AUTO DIFF 7:19 PM CDT after 06/30/2019 Results * CT Abdomen Pelvis W Contrast (05/22/2020 9:21 PM CDT) Specimen Narrative Performed At CT ABDOMEN PELVIS W CONTRAST [facility] CLINICAL INDICATION: R sided abd pain TECHNIQUE: Multidetector CT imaging o f the abdomen and pelvis was performed following the intravenous administratio n of iodinated contrast with multiplanar reconstructions. CT imaging was perfo rmed with iterative reconstruction technique and/or automated exposure control to reduce ra diation dose. COMPARISON: 04/08/2008 IMPRESSION: LOWER THORAX: Mild bibasilar atelecta sis. Mild wall thickening of the distal esop hagus is seen, concerning for esophagitis. LIVER: Diffuse fatty infiltration of the liver. BILIARY: Normal. SPLEEN: Normal. PANCREAS: Normal. ADRENALS: Normal. KIDNEYS: Kidneys, ureters, and bladde r are normal. PERITONEUM: Bilateral Essure devices ar e in satisfactory location. Trace fluid is seen in the pelvis. No free intraper itoneal air. VASCULAR: Unremarkable LYMPH NODES: No enlarged lymph nodes in the abdomen or pelvis. GI: Mild colonic diverticulosis is se en without diverticulitis. The appendix is normal. No gastrointestinal tract ob struction. BONES: There are no acute osseous abn ormalities. SOFT TISSUES: Unremarkable. Summary: Mild wall thickening of the distal esop hagus is seen, concerning for esophagitis. Diffuse fatty infiltration of the liver . [facility]-[id number] Procedure Note Hm Interface, Radiology Results Incoming - 05/22/2020 9:[address] ABDOMEN PELVIS W CONTRAST CLINICAL INDICATION: R sided abd pain TECHNIQUE: Multidetector CT imaging of the abdomen and pelvis was performed following the intravenous administration of iodinated contrast with multiplanar reconstructions. CT imaging was performed with iterative reconstruction technique and/or automated exposure control to reduce radiation dose. COMPARISON: 04/08/2008 IMPRESSION: LOWER THORAX: Mild bibasilar atelectasis. Mild wall thickening of the distal esophagus is seen, concerning for esophagitis. LIVER: Diffuse fatty infiltration of the liver. BILIARY: Normal. SPLEEN: Normal. PANCREAS: Normal. ADRENALS: Normal. KIDNEYS: Kidneys, ureters, and bladder are normal. PERITONEUM: Bilateral Essure devices are in satisfactory location. Trace fluid is seen in the pelvis. No free intraperitoneal air. VASCULAR: Unremarkable LYMPH NODES: No enlarged lymph nodes in the abdomen or pelvis. GI: Mild colonic diverticulosis is seen without diverticulitis. The appendix is normal. No gastrointestinal tract obstruction. BONES: There are no acute osseous abnormalities. SOFT TISSUES: Unremarkable. Summary: Mild wall thickening of the distal esophagus is seen, concerning for esophagitis. Diffuse fatty infiltration of the liver. [facility]-[id number] Performing Organization Address City/State/[facility] one Number [facility] [address] [place] [address] * Urine drugs of abuse screen (05/22/2020 8:32 PM CDT) Amphetamine Positive (A) [place] screen, urine [facility] Barbiturate Negative [place] screen, urine [facility] Benzodiazepine Negative [place] screen, urine [facility] Cocaine screen, Negative [place] urine [facility] Methadone Negative [place] metabolite [facility] (EDDP), urine [facility] Opiates screen, Negative [place] urine [facility] Oxycodone Negative [place] screen, urine [facility] Phencyclidine Negative [place] screen, urine [facility] Cannabinoid Positive (A) [place] screen, urine Comment: [facility] Drug screen minimum [facility] concentration of detectability HOSPITAL Amphetamines 1000 ng/mL Barbiturates 200 ng/mL Benzodiazepines 300 ng/mL Cocaine 300 ng/mL Methadone 300 ng/mL Opiates 300 ng/mL Oxycodone 300 ng/mL Phencyclidine 25 ng/mL Cannabinoids 50 ng/mL Tricyclics 1000 ng/mL Results are from screening tests and should only be used for medical evaluation. Drug testing for legal purposes requires definitive (or confirmatory) testing methods, which are available upon request. Contact the laboratory if definitive testing is required. Specimen Urine Performing Organization Address City/[facility] Ph one Number [facility] DEPARTMENT OF [address] [place] [address] [facility] [address] * Urinalysis screen and microscopy, with reflex to culture (05/22/2020 7:34 PM CDT) Specimen site Clean catch [facility] Color, UA Straw [facility] Appearance, UA Clear [facility] Specific 1.003 1.001 - 1.035 [place] gravity, [facility] pH, UA 6.0 5.0 - 8.5 [facility] Protein, UA Negative Negative [facility] Glucose, UA Negative Negative [facility] Ketones, UA Negative Negative [facility] Bilirubin, UA Negative Negative [facility] Blood, UA Negative Negative [facility] Nitrite, UA Negative Negative [facility] Urobilinogen, Negative <2.0 [facility] Leukocyte Negative Negative [place] esterase, [facility] WBC, UA <1 0 - 5 /HPF [facility] RBC, UA <1 0 - 5 /HPF [facility] Bacteria, UA None seen None seen [facility] Yeast, UA None seen [facility] Yeast with None seen [place] [facility] Specimen Urine Performing Organization Address City/State/[facility] Ph one Number [facility] DEPARTMENT OF [facility] [place] [address] [facility] [address] * Urine culture (05/22/2020 7:34 PM CDT) Urine culture SEE COMMENTComment: [place] Bacteriuria screen negative. [facility] Specimen Urine Performing Organization Address City/State/Zipcode Ph one Number [facility] DEPARTMENT OF [address] [place] [address] PATHOLOGY AND GENOMIC MEDICINE [address] * Estimated GFR (05/22/2020 7:19 PM CDT) [facility] Estimated GFR >=90 mL/min/1.73 m2 [place] Comment: [facility] G1 >=90 Normal or high G2 60-89 Mildly decreased G3a 45-59 Mildly to moderately decreased G3b 30-44 Moderately to severely decreased G4 15-29 Severely decreased G5 <15 Kidney failure The eGFR was calculated using the Chronic Kidney Disease Epidemiology Collaboration (CKD-EPI) equation. Interpretation is based on recommendations of the National Kidney Foundation-Kidney Disease Outcomes Quality Initiative (NKF-KDOQI) published in 2014. Specimen Performing Organization Address City/[facility] Ph one Number [facility] DEPARTMENT OF [address] [place] [address] PATHOLOGY AND GENOMIC MEDICINE [address] * CBC with platelet and differential (05/22/2020 7:19 PM CDT) [facility] WBC 8.2 4.2 - 11.0 k/uL [facility] RBC 4.99 4.04 - 5.86 m/uL [facility] HGB 13.0 11.5 - 15.3 g/dL [facility] HCT 41.2 34.0 - 45.0 % [facility] MCV 82.6 80.0 - 98.0 fL [facility] MCH 26.1 (L) 27.0 - 34.0 pg [facility] MCHC 31.6 31.5 - 36.5 g/dL [facility] RDW - SD 46.5 37.0 - 51.0 fL [facility] MPV 10.0 7.4 - 10.4 fL [facility] Platelet count 392 150 - 400 k/uL [facility] Nucleated RBC 0.00 /100 WBC [facility] Neutrophils 47.9 36.0 - 66.0 % [facility] Lymphocytes 39.6 24.0 - 44.0 % [facility] Monocytes 7.3 (H) 0.0 - 6.0 % [facility] Eosinophils 4.5 0.0 - 6.0 % [facility] Basophils 0.6 0.0 - 1.2 % [facility] Immature 0.1 0.0 - 1.0 % [place] granulocytes [facility] Specimen Blood Performing Organization Address City/[facility] Ph one Number [facility] DEPARTMENT OF [address] [place] [address] PATHOLOGY AND GENOMIC MEDICINE [address] * hCG qualitative, serum screen (05/22/2020 7:19 PM CDT) Pathologist [facility] hCG Negative [place] qualitative, Comment: [facility] serum The manufacturers stated [facility] sensitivity of HcG test for HOSPITAL serum is >/= 10 mIU/ml and urine is >/= 20mIU/ml. Specimen Blood Performing Organization Address City/[facility] Ph one Number [facility] DEPARTMENT OF [address] [place] [address] PATHOLOGY AND GENOMIC MEDICINE [address] * Lipase level (05/22/2020 7:19 PM CDT) [facility] Lipase 33 13 - 60 U/L [facility] Specimen Blood Performing Organization Address City/[facility] Ph one Number [facility] DEPARTMENT OF [address] [place] [address] PATHOLOGY AND GENOMIC MEDICINE [address] * Comprehensive metabolic panel (05/22/2020 7:19 PM CDT) [facility] Sodium 136 135 - 150 mEq/L [facility] Potassium 3.6 3.5 - 5.0 mEq/L [facility] Chloride 101 98 - 112 mEq/L [facility] CO2 24 24 - 31 mmol/L [facility] Anion gap 11@ANIO 7 - 15 mEq/L [facility] BUN 8 7 - 18 mg/dL [facility] Creatinine 0.70 0.50 - 0.90 mg/dL [facility] Glucose 94 65 - 100 mg/dL [facility] Calcium 8.8 8.3 - 10.2 mg/dL [facility] Protein 7.1 6.3 - 8.3 g/dL [facility] Albumin 3.5 3.5 - 5.0 g/dL [facility] A/G ratio 1.0 0.7 - 3.8 [facility] Alkaline 87 0 - 104 U/L [facility] AST 83 (H) 10 - 35 U/L [facility] ALT 85 (H) 5 - 50 U/L [facility] Total bilirubin 0.6 0.2 - 1.2 mg/dL [facility] Specimen Blood Performing Organization Address City/State/[facility] Ph one Number [facility] DEPARTMENT OF [address] [place] [address] [facility] [address] [place] [address] HOSPITAL after 06/30/2019 Advance Directives For more information, please contact: [phone] Patient Food Assembler Kitchen Explanation Type Date Recorded Advance Directives, Living Will and Medical Power of Market Stall Vendor Advance Directives, 05/22/2020 5:25 PM Living Will and Medical Power of Market Stall Vendor
--- OUTSIDE RECORDS SUMMARY | 2020-06-30 15:12 | XMS REPORT | Clinical Summary ---
Author Author [facility] Organization [facility] Address Unknown Phone Unavailable Care Team Providers Care Power System Dispatcher Name Role Phone PCP Unavailable Allergies Comments Active Allergy Reactions Severity Noted Date Sulfa (Sulfonamide 12/10/2011 Antibiotics) Medications End Date Status Medication Sig Dispensed Refills Start Date Active FLUoxetine (PROZAC) 40 mg Take 1 30 capsule 3 capsuleIndications: capsule by 4 Bipolar affective, mouth daily. Depression Active butalbital-apap Take 1 tablet 30 tablet 1 09/01/20 1 (PHRENILIN) 50-325 mg by mouth 4 tabletIndications: every 4 hours Headache(784.0) as needed for Pain. Active Lubiprostone (AMITIZA) 8 Take 1 60 capsule 3 1 mcg capsuleIndications: capsule by 4 IBS (irritable bowel mouth 2 times syndrome), Constipation daily (with meals). Active predniSONE (DELTASONE) 20 Take 1 tablet 30 tablet 0 mg tabletIndications: by mouth 4 Rheumatoid daily. arthritis(714.0) Active benzonatate (TESSALON Take 1 20 capsule 0 10/11 PERLES) 100 mg capsule by 4 capsuleIndications: Acute mouth 3 times bronchitis daily as needed for Cough. Active clonazePAM (KLONOPIN) 1 Take 1 tablet 60 tablet 1 mg tabletIndications: by mouth 2 5 Bipolar 1 disorder times daily as needed for Anxiety. Active FLUoxetine (PROZAC) 20 mg Take 3 270 capsule 1 capsuleIndications: capsules by 5 Bipolar 1 disorder mouth daily. Active ARIPiprazole (ABILIFY) 5 Take 1 tab po 60 tablet 1 mg tabletIndications: BID. 5 Bipolar 1 disorder Active traZODone (DESYREL) 100 Take 1 tablet 30 tablet 1 02/04/201 mg tabletIndications: by mouth at 5 Bipolar 1 disorder bedtime nightly. Active Problems Problem Noted Date Hand trauma, left, initial encounter 02/06/2018 Headache(784.0) 09/01/2014 Anxiety 09/01/2014 Active smoker 09/01/2014 Seizure disorder 09/01/2014 Rheumatoid arthritis(714.0) 09/01/2014 Bipolar affective 09/01/2014 Depression 09/01/2014 Right sided abdominal pain 12/11/2011 Family History Medical History Relation Name Comments Hypertension Father Diabetes Mother Heart Mother Hypertension Mother Relation Name Status Comments Father Alive Mother Social History Date Tobacco Use Types Packs/Day Years Used Current Every Day Smoker Smokeless Tobacco: Never Used Tobacco Cessation: Ready to Quit: No; Co unseling Given: No Drinks/Week oz/Week Comments Alcohol Use Occasional Yes Sex Assigned at Date Recorded Not on file Industry Job Start Date Occupation Not on file Not on file Not on file Travel End Travel History Travel Start No recent travel history available. Last Filed Vital Signs Not on file Plan of Treatment Health Maintenance Due Date Last Done Comments Cervical Cancer Scrn (3 2000 Yrs) Breast Cancer Scrn 2019 (Yearly) IMM Influenza Seasonal 08/09/2020 Oct to January (>/= 19 yrs) Results Not on fileafter 06/30/2019 Insurance Type Payer Benefit Subscriber ID Effective Phone Address Plan / Dates Group [facility] SELF-PAY SELF-PAY xxxxxx 2017- [phone] [id number] [place] [address]
[2020-06-30] MEDS ORDERED: LISINOPRIL5 MG PO (15:18)
--- NOTE | 2020-06-30 15:37 | Emergency Department Note ---
History of Present Illnes History of Present Illness Chief Complaint: Extremity Trauma/Pain History of Present Illness This is a 40 year old female INFECTED/SWOLLEN AREA TO TIP OF R THUMB FOR GREATER THAN 1 WEEK. PT CUT OPEN 6 DAYS AGO IN ATTMPT TO DRAIN. Historian: Patient Arrival Mode: [facility] EMS Treatment AUTOMATIC BOW MAKER MACHINE TENDER: IV Additional Treatment AUTOMATIC BOW MAKER MACHINE TENDER: 18G IV LOCK TO LAC, LACTATE 1.3 GLU 106 Receiving Dock Checker Required: No Onset (how long ago): week(s) (1) Location: RIGHT THUMB Quality: PAIN Radiation: Reports non-radiation Severity: moderate Onset quality: gradual Timing of current episode: constant Chronicity: new Context: Denies recent illness Relieving factors: none Exacerbating factors: none Associated symptoms: Reports denies other symptoms Treatments prior to arrival: none Past Medical/Family History Physician Review I have reviewed the patient's past medical and family history. Any updates have been documented here. Past Medical History Recent Fever: No Clinical Suspicion of Infectio: Yes New/Unexplained Change in Ment: No Past Medical History: Hypertension, Anxiety Other Medical History: RHEUMATOID ARTHRITIS FIBROMYALGIA BIPOLAR ANXIETY Past Surgical History: Other Surgery: C-SECTIONS X2 BILATERAL HAND X4 Social History Smoking Cessation: Current every day smoker Counseling Performed: Yes Alcohol Use: Social Any Illegal Drug Use: No TB Exposure/Symptoms: No Physically hurt or threatened: No Family History Family history of heart diseas: No Other Last Tetanus: UTD Any Pre-Existing Lines (PICC,: No Review of Systems Review of Systems Constitutional: Reports no symptoms EENTM: Reports no symptoms Cardiovascular: Reports no symptoms Respiratory: Reports no symptoms Gastrointestinal: Reports no symptoms Genitourinary: Reports no symptoms Musculoskeletal: Reports as per HPI Integumentary: Reports no symptoms Neurological: Reports no symptoms Psychological: Reports no symptoms Endocrine: Reports no symptoms Hematological/Lymphatic: Reports no symptoms Physical Exam Related Data Allergies: Coded Allergies: Sulfa (Sulfonamide Antibiotics) (Verified Allergy, Intermediate, "SLOWLY KILLS ME", 05/07/15) Triage Vital Signs Vital Signs Date Time Temp Pulse Resp B/P (MAP) Pulse Ox O2 Delivery O2 Flow Rate FiO2 06/30/20 15:14 98.6 112 18 146/109 100 Room Air Vital signs reviewed: Yes Physical Exam CONSTITUTIONAL Constitutional: Present other (ANXIOUS) HENT HENT: Present normocephalic, Present atraumatic, Present oropharynx clear/moist, Present nose normal HENT L/R: Present left ext ear normal, Present right ext ear normal EYES Eyes: Reports PERRL, Reports conjunctivae normal NECK Neck: Present ROM normal PULMONARY Pulmonary: Present effort normal, Present breath sounds normal CARDIOVASCULAR Cardiovascular: Present regular rhythm, Present heart sounds normal, Present capillary refill normal, Present normal rate GASTROINTESTINAL Abdominal: Present soft, Present nontender, Present bowel sounds normal GENITOURINARY Genitourinary: Present exam deferred SKIN Skin: Present warm, Present other (RIGHT THUMB WITH MILD SWELLING OF PAD, TENDER, GOOD ROM, NL CAP REFILL) MUSCULOSKELETAL Musculoskeletal: Present ROM normal NEUROLOGICAL Neurological: Present alert, Present oriented x 3, Present no gross motor or sensory deficits PSYCHOLOGICAL Psychological: Present mood/affect normal, Present judgement normal Assessment & Plan Medical Decision Making MDM MILD CELLULITIS, NO FELON, NO PARONYCHIA Reassessment Reassessment DC HOME, F/U PCP, CLINDA 300 QID, TORADOL PO Assessment & Plan Final Impression: (1) Cellulitis Depart Disposition: HOME, SELF-CARE Last Vital Signs Date Time Temp Pulse Resp B/P (MAP) Pulse Ox O2 Delivery O2 Flow Rate FiO2 06/30/20 15:14 98.6 112 18 146/109 100 Room Air Home Meds Reported Medications Lisinopril (LISINOPRIL) 5 Mg Tablet, PO BID, #60 TAB 06/30/20 Discontinued Reported Medications [No Meds] No Conflict Check 05/07/15 Discontinued Scripts Tramadol Hcl (ULTRAM) 50 Mg Tablet, 50 MG PO Q6H PRN for Mild Pain (1-3) or Fever>100.8, #15 TAB Prov:[employer]ET [employer] 12/28/19 Clindamycin Hcl (CLINDAMYCIN HCL) 300 Mg Capsule, 300 MG PO Q6H, #40 CAP Prov:MEET [employer] 12/28/19 GHAZAL WEATHERS MD Jun 30, 2020 15:37
== END 2020-06-30 15:52 | disposition home or self-care (01) ==
LOC: ER 15:09
DX: L03.011 Cellulitis of right finger (principal); I10 Essential (primary) hypertension; M06.9 Rheumatoid arthritis, unspecified; M79.7 Fibromyalgia; F41.9 Anxiety disorder, unspecified
CPT/HCPCS: 99283